=== PATIENT | male | born 1990 | race Hispanic/Latino ===

== ENCOUNTER → 2021-12-26 | Day surgery (SDC) | payer OTHER ==
[~2021-12-26] MED LIST: FLONASE ALLERG9.9 ML INH; PAMELOR25 MG PO; PANTOPRAZOLE SO40 MG PO
[2021-12-26 14:00] VITALS: BP 129/82
[2021-12-31 12:12] LABS: ENDOMYSIAL ANTIBODIES, IGA Negative (Negative)
== END | disposition home or self-care (01) ==
LOC: OR 10:01
PROVIDERS: ATTEND Internal Medicine Gastroenterology
DX: K29.50 Unspecified chronic gastritis without bleeding (principal); K52.9 Noninfective gastroenteritis and colitis, unspecified; K20.90 Esophagitis, unspecified without bleeding; K29.80 Duodenitis without bleeding; K21.9 Gastro-esophageal reflux disease without esophagitis; K59.09 Other constipation; K64.8 Other hemorrhoids; Z71.3 Dietary counseling and surveillance; F41.9 Anxiety disorder, unspecified; F32.A Depression, unspecified
CPT/HCPCS: 43239; 45380; 82784; 83516; 83630; 83993; 86256; 87045; 87177; 87324; 87328; 87449; C9113; 45378